=== PATIENT | male | born 1940 | race Caucasian/White ===

== ENCOUNTER → 2019-11-17 09:55 | Outpatient (BNVA) | payer MEDICARE, SELFPAY | PROVIDERS: Visit Provider Family Medicine | DX: I10 Essential (primary) hypertension (principal); R35.1 Nocturia; E03.9 Hypothyroidism, unspecified | CPT/HCPCS: 80053; 80061; 82044; 84153; 84443; 85025 ==

== ENCOUNTER → 2019-12-13 08:46 | Outpatient (BNVA) | payer MEDICARE, SELFPAY | PROVIDERS: PCP Family Medicine; Referring Provider Family Medicine; Visit Provider Urology | DX: R97.20 Elevated prostate specific antigen [PSA] (principal) | CPT/HCPCS: 84153 ==

== ENCOUNTER → 2020-06-21 11:48 | Outpatient (BNVA) | payer MEDICARE, SELFPAY | PROVIDERS: PCP Family Medicine; Visit Provider Family Medicine | DX: E03.9 Hypothyroidism, unspecified (principal); I10 Essential (primary) hypertension; K21.9 Gastro-esophageal reflux disease without esophagitis | CPT/HCPCS: 80053; 84443 ==

== ENCOUNTER → 2020-08-21 15:58 | Outpatient (BNVA) | payer MEDICARE, SELFPAY | PROVIDERS: PCP Family Medicine; Visit Provider Urology | DX: R39.9 Unspecified symptoms and signs involving the genitourinary system (principal); N99.111 Postprocedural bulbous urethral stricture, male; R97.20 Elevated prostate specific antigen [PSA] | CPT/HCPCS: 81003; 84153 ==

== ENCOUNTER → 2020-12-20 12:08 | Outpatient (BNVA) | payer MEDICARE, SELFPAY | PROVIDERS: PCP Family Medicine; Visit Provider Family Medicine | DX: I10 Essential (primary) hypertension (principal); E03.9 Hypothyroidism, unspecified; K21.9 Gastro-esophageal reflux disease without esophagitis; M79.89 Other specified soft tissue disorders | CPT/HCPCS: 80053; 80061; 82043; 84439; 84443; 85025 ==

== ENCOUNTER → 2021-06-13 13:42 | Outpatient (BNVA) | payer MEDICARE, SELFPAY | PROVIDERS: PCP Family Medicine; Visit Provider Family Medicine | DX: E03.9 Hypothyroidism, unspecified (principal); I10 Essential (primary) hypertension | CPT/HCPCS: 80053; 84443 ==

== ENCOUNTER → 2021-12-16 13:27 | Outpatient (BNVA) | payer MEDICARE, SELFPAY | PROVIDERS: PCP Family Medicine; Visit Provider Family Medicine | DX: I10 Essential (primary) hypertension (principal); R60.0 Localized edema; R35.1 Nocturia; R97.20 Elevated prostate specific antigen [PSA] | CPT/HCPCS: 80053; 80061; 82043; 84153; 84443; 85025 ==

== ENCOUNTER → 2022-02-13 14:22 | Outpatient (BNVA) | payer MEDICARE, SELFPAY | PROVIDERS: PCP Family Medicine; Visit Provider Family Medicine | DX: I10 Essential (primary) hypertension (principal); R60.0 Localized edema | CPT/HCPCS: 80048 ==

== ENCOUNTER → 2022-02-26 09:05 | Outpatient (BNVA) | payer MEDICARE, SELFPAY | PROVIDERS: PCP Family Medicine; Visit Provider Urology | DX: R97.20 Elevated prostate specific antigen [PSA] (principal) | CPT/HCPCS: 84153 ==

== ENCOUNTER → 2022-03-06 08:34 | Outpatient (BNVA) | payer MEDICARE, SELFPAY | PROVIDERS: PCP Family Medicine; Visit Provider Urology | DX: N99.111 Postprocedural bulbous urethral stricture, male (principal); R97.20 Elevated prostate specific antigen [PSA]; R39.9 Unspecified symptoms and signs involving the genitourinary system | CPT/HCPCS: 51741; 51798; 81003; 99213 ==

== ENCOUNTER 2022-03-13 09:37 | Outpatient (CLI) | payer MEDICARE, SELFPAY ==
--- NOTE | 2022-03-13 10:00 | USCV_ITS ---
Smith Gar Age: 81 Gender: M : 1940 Exam Date: 03/13/2022 09:53 Ordering Phys: Eliz Wolfe DO Technologist: Muriel Reid [place]am Location[place] [facility] [place] Indication: LE edema BP: 130 / 70 HR: 93 Rhythm: Sinus Technical Quality: Good MEASUREMENTS (Male / Female) Normal Values 2D ECHO LV Diastolic Diameter PLAX 4.0 cm 4.2 - 5.9 / 3.9 - 5.3 cm LV Systolic Diameter PLAX 1.7 cm IVS Diastolic Thickness 1.2 cm 0.6 - 1.0 / 0.6 - 0.9 cm IVS Systolic Thickness 1.6 cm LVPW Diastolic Thickness 1.2 cm 0.6 - 1.0 / 0.6 - 0.9 cm LVPW Systolic Thickness 2.1 cm LVOT Diameter 2.1 cm LV Ejection Fraction 2D Teich 87.4 % LV Ejection Fraction MOD 2C 55.5 % LV Ejection Fraction 2C AL 58.4 % LA Diameter 4.0 cm LA Width 4.4 cm LA Height 6.9 cm RA Width 3.2 cm RA Height 5.9 cm Aorta at Sinotubular Diameter 3.1 cm IVC Diameter 1.1 cm M-MODE MV E Point Septal Separation 0.8 cm DOPPLER AV Peak Velocity 72.0 cm/s LVOT Peak Velocity 78.0 cm/s AV Area Cont Eq vti 3.2 cm squared AV Area Cont Eq pk 3.7 cm squared MV Peak Velocity 109.0 cm/s MV Area PHT 6.3 cm squared Mitral E to A Ratio 4.4 MV E' Velocity 46.5 cm/s Mitral E to MV E' Ratio 8.3 Mitral E to LV E' Lateral Ratio 7.3 Mitral E to LV E' Septal Ratio 9.7 TR Peak Velocity 173.3 cm/s TR Peak Gradient 12.0 mmHg Right Atrial Pressure 3.0 mmHg Pulmonary Artery Systolic Pressu 15.0 mmHg PV Peak Velocity 72.0 cm/s RV Acceleration Time 0.1 s RV Ejection Time 0.3 s RV AcT/ET 0.3 FINDINGS Left Ventricle Normal left ventricular size and systolic function, ejection fraction around 50 to 55%(visual). Because of the arrhythmias, segmental wall motion analysis and ejection fraction estimation are difficult Right Ventricle The right ventricle is normal in size and function. Right Atrium Mildly increased right atrial size. Left Atrium Mildly increased left atrial size. Mitral Valve Trace mitral valve regurgitation. Aortic Valve No gross abnormalities noted Tricuspid Valve Mild tricuspid valve regurgitation. Pulmonic Valve Pulmonic valve not well visualized. Pericardium Normal pericardium without effusion. Aorta Normal aortic annulus size. IVC Normal inferior vena cava. CONCLUSIONS Normal left ventricular size and systolic function, ejection fraction around 50 to 55%(visual). Because of the arrhythmias, segmental wall motion analysis and ejection fraction estimation are difficult. Mild biatrial enlargement Trace mitral valve regurgitation. Mild tricuspid valve regurgitation. Estimated pulmonary artery peak systolic pressure, within normal limits Technically difficult study because of the poor ultrasonic window. No similar previous studies are available for comparison Dr Kiley Jin MD [facility] (Electronically Signed) Final Date: 13 March 2022 21:01 S
== END 2022-03-13 09:38 | disposition home or self-care (01) ==
LOC: RAD 09:38
PROVIDERS: PCP Family Medicine; Visit Provider Family Medicine
DX: R60.0 Localized edema (principal); I08.1 Rheumatic disorders of both mitral and tricuspid valves
CPT/HCPCS: 93306

== ENCOUNTER 2022-10-23 15:17 | Emergency (ER) | payer MEDICARE, SELFPAY ==
[2022-10-23 15:24] VITALS: BP 144/94; PULSE 96; RESP 16; TEMP 36.4; O2SAT 95; BMI 30.7
--- NOTE | 2022-10-23 16:05 | CTR_ITS ---
PROCEDURE INFORMATION: Exam: CT Abdomen And Pelvis With Contrast Exam date and time: 10/23/2022 5:00 PM Age: 82 years old Clinical indication: Abdominal pain; Localized; Left lower quadrant (llq); Prior surgery; Surgery date: 6+ months; Surgery type: Appy; Additional info: Llq pain, HX of diverticulitis TECHNIQUE: Imaging protocol: Computed tomography of the abdomen and pelvis with contrast. Radiation optimization: All CT scans at this facility use at least one of these dose optimization techniques: automated exposure control; mA and/or kV adjustment per patient size (includes targeted exams where dose is matched to clinical indication); or iterative reconstruction. Contrast material: OMNI 350; Contrast volume: 100 ml; Contrast route: INTRAVENOUS (IV); REPORTING DATA: Count of CT and Cardiac NM exams in prior 12 months: This patient has received 0 known CTs and 0 known cardiac nuclear medicine studies in the 12 months prior to the current study. COMPARISON: No relevant prior studies available. RADIATION DOSE METRICS: Total DLP (mGy-cm): 892.6 FINDINGS: Lungs: Emphysematous changes. Minimal bibasilar interstitial fibrotic changes. Liver: Hepatic steatosis. Gallbladder and bile ducts: Normal. No calcified stones. No ductal dilation. Pancreas: Normal. No ductal dilation. Spleen: Normal. No splenomegaly. Adrenal glands: Normal. No mass. Kidneys and ureters: Right kidney cyst, negative for follow-up advised. Stomach and bowel: Edematous fat density lesion measuring 22 mm along the medial aspect of the distal descending colon suggestive of epiploic appendagitis, diverticulitis may also be a consideration given the presence of several diverticuli in this region with some colonic wall thickening. Appendix: No evidence of appendicitis. Intraperitoneal space: Unremarkable. No free air. No significant fluid collection. Vasculature: Unremarkable. No abdominal aortic aneurysm. Lymph nodes: Unremarkable. No enlarged lymph nodes. Urinary bladder: Unremarkable as visualized. Reproductive: Nodular prostate gland enlargement. Bones/joints: Unremarkable. No acute fracture. Soft tissues: Unremarkable. CT/CT abdomen pelvis w con* [id number] IMPRESSION: 1. Edematous fat density lesion measuring 22 mm along the medial aspect of the distal descending colon suggestive of epiploic appendagitis, diverticulitis may also be a consideration given the presence of several diverticuli in this region with some colonic wall thickening. 2. Nodular prostate gland enlargement. 3. Emphysematous changes. 4. Minimal bibasilar interstitial fibrotic changes. 5. Hepatic steatosis. 6. Right kidney cyst, negative for follow-up advised. COMMENTS: Consistent with the [employer]'s Incidental Findings Committee white paper (J Am Mikala Radiol 2018): Any incidental renal lesion less than 1 cm or classified as too small to characterize, or any incidental cystic renal lesion characterized as simple-appearing, is likely benign. No follow-up imaging is recommended for these lesions per consensus recommendations based on imaging criteria.
[2022-10-23 16:09] VITALS: BP 115/80; PULSE 94; RESP 18; O2SAT 98
[2022-10-23 16:26] LABS: Basophils # 0.1 10^3/uL (0.0-0.1); Basophils % 0.7 %; Eosinophils # 0.2 10^3/uL (0.0-0.8); Eosinophils % 2.7 %; Hematocrit 51.3 % (42.0-52.0); Hemoglobin 16.4 g/dL (11.7-16.6); Lymphocytes # 1.4 10^3/uL (0.8-4.8); Lymphocytes % 16.9 %; Mean Corpuscular Hemoglobin 29.8 pg (28.0-34.0); Mean Corpuscular Volume 93.1 fl (80-94); Mean Platelet Volume 10.6 fL (7.4-10.4); Monocytes # 0.8 10^3/uL (0.2-0.9); Monocytes % 8.9 %; Neutrophils # 5.88 10^3/uL (1.8-7.7); Neutrophils % 70.3 %; Nucleated Red Blood Cells % 0 %; Platelet Count 239 10^3/cmm (130-400); Red Blood Count 5.51 10^6/uL (4.1-5.3); Red Cell Distribution Width 13.2 % (12.1-15.1); White Blood Count 8.4 10^3/uL (4.0-10.0)
--- NOTE | 2022-10-23 16:28 | ED_ITS ---
HPI - Abdominal Pain General: Chief Complaint: Abdominal Pain Stated Complaint: Sore belly Time Seen by Provider: 10/23/22 16:05 History of Present Illness: Patient presents to the ER from his PCPs office for left lower quadrant abdominal pain. They want us to rule out diverticulitis. Patient's had this pain for about 5 days. Patient had does not have any nausea vomiting diarrhea fevers chills. Has had this pain before that he thought it was a pulled abdominal muscle and went away. It usually last a couple days but this times last 5 days so he was curious if it was something different. Nothing makes his pain better or worse. Review of Systems General: Reports: 10 or more systems reviewed and unremarkable except in HPI and below PFSH ED PFSH: Medical History Dilation of esophagus Elevated PSA Essential hypertension GERD (gastroesophageal reflux disease) Hypothyroid Infection of external ear Lower urinary tract symptoms (LUTS) Otitis externa Surgical History H/O dilation of urethra History of cholecystectomy History of prostate surgery history of TURP - 2009 Family History Mother , 87 No problems noted. Father , 68 Stroke Social History Smoking and tobacco status: former smoker Alcohol intake: former Substance/Drug Use: never Marital status: Current occupational status: retired Physical Exam Const: COMMON NORMALS: no acute distress, average body habitus, patient oriented x3, no limitations, healthy appearing, alert and well nourished HENMT: COMMON NORMALS: normocephalic, atraumatic, hearing grossly normal bilaterally, external ears normal, Normal external nose present and moist oral mucous membranes HEAD & SCALP: normocephalic and atraumatic NOSE: Normal external nose present EXTERNAL EAR: Yes external ears normal Eye: COMMON NORMALS: Equal, round and reactive pupils present, EOMs intact bilaterally, conjunctivae normal and no scleral icterus CONJUNCTIVA: Yes conjunctivae normal PUPIL: Yes Equal, round and reactive pupils present Neck/C-Spine: COMMON NORMALS: full ROM, no lymphadenopathy, supple, no meningeal signs, no JVD and Thyroid normal THYROID: Thyroid normal Chest: COMMONS NORMALS: normal inspection of the chest and normal palpation of entire chest wall Resp: COMMON NORMALS: normal respiratory effort, No retractions, No use of accessory muscles and clear to auscultation bilaterally AUSCULTATION: clear to auscultation bilaterally Cardio: COMMON NORMALS: no JVD, regular rate, regular rhythm, S1 normal heart sound present, S2 normal heart sound present, No gallops present (Cardio), No clicks present (Cardio), No murmurs present (Cardio) and No rub (Cardio) RATE: regular rate RHYTHM: regular rhythm HEART SOUNDS: S1 normal heart sound present and S2 normal heart sound present GI: COMMON NORMALS: Normal to inspection, nondistended, normoactive bowel sounds present, Soft to palpation, No hepatosplenomegaly present and no masses PALPATION: Yes Soft to palpation, Yes Tenderness to palpation present (GI) Details: LLQ and Yes No hepatosplenomegaly present : COMMON NORMALS: Yes no CVA tenderness BLADDER/KIDNEY EXAM: Yes no CVA tenderness Back/Pelvis: COMMON NORMALS: no CVA tenderness Neuro: COMMON NORMALS: patient oriented x3 SENSORIUM/ORIENTATION: Yes alert MENINGEAL SIGNS: Yes no meningeal signs Course Vital Signs: Vital signs: Vital Signs Temperature 97.5 F L 10/23/22 15:24 Pulse Rate 94 10/23/22 16:09 Respiratory Rate 18 10/23/22 16:09 Blood Pressure 115/80 10/23/22 16:09 Pulse Oximetry 98 10/23/22 16:09 Oxygen Delivery Me thod Room Air 10/23/22 16:09 MDM - Abdominal Pain Medical Decision Making Patient presents to the ER with complaints of left lower quadrant pain. Patient had blood work and a CT scan performed blood work was essentially benign. CT scan did show very mild evidence of diverticulitis. Patient will be treated for diverticulitis with Cipro and Flagyl. Patient should follow-up with his family practice doc within the next 7 to 10 days or sooner as needed. These instructions were explained to the patient and his and daughter. Patient will be discharged home Differential Diagnosis Likely abdominal pain; Unlikely acute appendicitis, calculus of kidney, constipation, diverticulitis, endometriosis, gastroenteritis, pancreatitis or small bowel obstruction Medical Records I reviewed the patient's medical records. Lab Data I reviewed the patient's lab results. 10/23/22 16:17 10/23/22 16:17 Labs/Radiology: Radiology Impressions Abdomen/Pelvis CT 10/23/22 16:05 IMPRESSION: 1. Edematous fat density lesion measuring 22 mm along the medial aspect of the distal descending colon suggestive of epiploic appendagitis, diverticulitis may also be a consideration given the presence of several diverticuli in this region with some colonic wall thickening. 2. Nodular prostate gland enlargement. 3. Emphysematous changes. 4. Minimal bibasilar interstitial fibrotic changes. 5. Hepatic steatosis. 6. Right kidney cyst, negative for follow-up advised. COMMENTS: Consistent with the [employer]'s Incidental Findings Committee white paper (J Am Mikala Radiol 2018): Any incidental renal lesion less than 1 cm or classified as too small to characterize, or any incidental cystic renal lesion characterized as simple-appearing, is likely benign. No follow-up imaging is recommended for these lesions per consensus recommendations based on imaging criteria. Laboratory Results WBC 8.4 10^3/uL (4.0-10.0) 10/23/22 16:17 RBC 5.51 10^6/uL (4.1-5.3) H 10/23/22 16:17 Hgb 16.4 g/dL (11.7-16.6) 10/23/22 16:17 Hct 51.3 % (42.0-52.0) 10/23/22 16:17 MCV 93.1 fl (80-94) 10/23/22 16:17 MCH 29.8 pg (28.0-34.0) 10/23/22 16:17 MCHC 32.0 g/dL (30.0-36.0) 10/23/22 16:17 RDW 13.2 % (12.1-15.1) 10/23/22 16:17 Plt Count 239 10^3/cmm (130-400) 10/23/22 16:17 MPV 10.6 fL (7.4-10.4) H 10/23/22 16:17 Neut % (Auto) 70.3 % 10/23/22 16:17 Lymph % (Auto) 16.9 % 10/23/22 16:17 [place] % (Auto) 8.9 % 10/23/22 16:17 Eos % (Auto) 2.7 % 10/23/22 16:17 Baso % (Auto) 0.7 % 10/23/22 16:17 Neut # (Auto) 5.88 10^3/uL (1.8-7.7) 10/23/22 16:17 Lymph # (Auto) 1.4 10^3/uL (0.8-4.8) 10/23/22 16:17 [place] # (Auto) 0.8 10^3/uL (0.2-0.9) 10/23/22 16:17 Eos # (Auto) 0.2 10^3/uL (0.0-0.8) 10/23/22 16:17 Baso # (Auto) 0.1 10^3/uL (0.0-0.1) 10/23/22 16:17 Nucleated RBC % (auto) 0 % 10/23/22 16:17 Nucleated RBCs # 0.0 /100WBC 10/23/22 16:17 Sodium 141 mmol/L (136-145) 10/23/22 16:17 Potassium 4.2 mmol/L (3.5-5.1) 10/23/22 16:17 Chloride 105 mmol/L (98-107) 10/23/22 16:17 Carbon Dioxide 27 mmol/L (22-29) 10/23/22 16:17 Anion Gap 13.2 (5-19) 10/23/22 16:17 BUN 19 mg/dL (8-23) 10/23/22 16:17 Creatinine 0.9 mg/dL (0.7-1.2) 10/23/22 16:17 GFR Calculation Not Reportable 10/23/22 16:17 Glucose 90 mg/dL (65-115) 10/23/22 16:17 Calculated Osmolality 294 mOsm/kg (285-295) 10/23/22 16:17 Calcium 9.3 mg/dL (8.5-10.5) 10/23/22 16:17 Total Bilirubin 0.6 mg/dL (0.15-1.2) 10/23/22 16:17 AST 21 U/L (0-40) 10/23/22 16:17 ALT 24 U/L (0-41) 10/23/22 16:17 Alkaline Phosphatase 104 U/L (40-130) 10/23/22 16:17 Total Protein 6.8 g/dL (6.6-8.7) 10/23/22 16:17 Albumin 3.6 g/dL (3.5-5.2) 10/23/22 16:17 Globulin 3.2 g/dL (1.3-4.6) 10/23/22 16:17 Lipase 17 U/L (13-60) 10/23/22 16:17 Urine Color Yellow (Yellow) 10/23/22 16:41 Urine Appearance Clear (CLEAR) 10/23/22 16:41 Urine pH 5 (5-7) 10/23/22 16:41 Ur Specific [place] 1.025 (1.005-1.030) 10/23/22 16:41 Urine Protein Neg (Negative) 10/23/22 16:41 Urine Glucose (UA) Norm (Normal) 10/23/22 16:41 Urine Ketones Negative (Negative) 10/23/22 16:41 Urine Blood 2+ (Negative) H 10/23/22 16:41 Urine Nitrate Negative (Negative) 10/23/22 16:41 Urine Bilirubin Neg (Negative) 10/23/22 16:41 Urine Urobilinogen Norm mg/dL (Negative) 10/23/22 16:41 Ur Leukocyte Esterase Negative (Negative) 10/23/22 16:41 Urine RBC 0-4 /hpf (0-2) H 10/23/22 16:41 Urine WBC 0-4 /hpf (0-5) H 10/23/22 16:41 Ur Squamous Epith Cells 0-4 /hpf (0-5) H 10/23/22 16:41 Amorphous Sediment Not Reportable 10/23/22 16:41 Urine Bacteria Trace /hpf (NONE) 10/23/22 16:41 Urine Mucus 3+ /hpf 10/23/22 16:41 Discharge Plan Discharge Patient Disposition: Home Clinical Impression: Diverticulitis Condition: Stable Prescriptions: New ciprofloxacin HCl 500 mg tablet 250 mg PO Q12H Qty: 20 0RF metronidazole 500 mg tablet 500 mg PO Q8H Qty: 30 0RF No Action metoprolol tartrate 25 mg tablet 12.5 mg PO BID Qty: 30 0RF Eliquis 5 mg Tablet 5 mg PO BID levothyroxine 75 mcg tablet 75 mcg PO DAILY pantoprazole 40 mg tablet,delayed release (/EC) 40 mg PO DAILY PRN (Reason: Acid Reflux) Discharge Orders: Discharge ED (Routine); Ordered 10/23/22 Ordered By: Sharif Kilgore Referrals: Eliz Wolfe DO [Primary Care Provider] - 1 week Patient Instructions: Diverticulitis Activity Restrictions/Additional Instructions: Please take your antibiotics as directed. Please follow-up with your primary care doc within the next 1 to week as needed. Please return to the ER if your symptoms worsen. 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
[2022-10-23 16:45] LABS: Alanine Aminotransferase 24 U/L (0-41); Albumin Level 3.6 g/dL (3.5-5.2); Alkaline Phosphatase 104 U/L (40-130); Anion Gap 13.2 (5-19); Aspartate Amino Transferase 21 U/L (0-40); Blood Urea Nitrogen 19 mg/dL (8-23); Calcium 9.3 mg/dL (8.5-10.5); Carbon Dioxide 27 mmol/L (22-29); Chloride 105 mmol/L (98-107); Globulin 3.2 g/dL (1.3-4.6); Glucose 90 mg/dL (65-115); Lipase 17 U/L (13-60); Osmolality Calculated 294 mOsm/kg (285-295); Potassium 4.2 mmol/L (3.5-5.1); Sodium 141 mmol/L (136-145); Total Bilirubin 0.6 mg/dL (0.15-1.2); Total Protein 6.8 g/dL (6.6-8.7)
[2022-10-23 17:12] LABS: Add Urine Microscopic? YES; Bacteria Urine TRACE /hpf; Bilirubin Urine Neg (Negative); Blood Urine 2+ (Negative); Glucose Urine UA Norm (Normal); Ketones Urine Negative (Negative); Leukocyte Esterase Urine Negative (Negative); Mucus Urine 3+ /hpf; Nitrate Urine Negative (Negative); Protein Urine Neg (Negative); RBC Urine 0-4 /hpf (0-2); Specific Gravity, Urine 1.025 (1.005-1.030); Squamous Epithelial Cell Urine 0-4 /hpf (0-5); Urine Appearance Clear (CLEAR); Urine Color Yellow (Yellow); Urobilinogen Urine Norm (Negative); WBC Urine 0-4 /hpf (0-5); pH Urine 5 (5-7)
[2022-10-23 17:13] LABS: Add Urine Culture? No
== END 2022-10-23 18:23 | disposition home or self-care (01) ==
PROVIDERS: Emergency Provider Emergency Medicine; PCP Family Medicine
DX: K57.32 Diverticulitis of large intestine without perforation or abscess without bleeding (principal)
CPT/HCPCS: 74177; 80053; 81001; 83690; 85025; 99284; Q9967

== ENCOUNTER 2022-10-28 10:19 | Emergency (ER) | payer OTHER, SELFPAY ==
[2022-10-28 10:22] VITALS: BP 137/93; PULSE 95; RESP 18; TEMP 36.7; O2SAT 97
--- NOTE | 2022-10-28 10:40 | ECG_ITS ---
[facility] Test Date: 2022-10-28 Pat Name: Smith Gar Department: Room: Gender: Male Pumper Head: : 1940 Requested By: Sharif Kilgore Order Number: [id number] Flynn MD: Kiley Jin M.D. Measurements Intervals Eros Rate: 87 P: 0 MO: 0 QRS: 23 QRSD: 84 T: 36 QT: 351 QTc: 425 Interpretive Statements ATRIAL FIBRILLATION ABNORMAL RHYTHM ECG No previous ECG available for comparison Electronically Signed On 10-29-2022 10:07:04 CDT by Kiley Jin M.D. [email or web address] [id number]
--- NOTE | 2022-10-28 11:24 | W.ED.GENADLT ---
HPI - General Adult General: Chief complaint: General Medical Stated complaint: dr bolaños sent did not say why dr said go immedia Time Seen by Provider: 10/28/22 11:14 History of Present Illness: Patient sent here by PCP due to them having a report of sustained A-fib with RVR from yesterday. Patient does not have any complaints at this moment. And he denies any complaints yesterday other than yard work. Patient is currently on Eliquis. Review of Systems General: Reports: 10 or more systems reviewed and unremarkable except in HPI and below PFSH ED PFSH: Medical History Dilation of esophagus Elevated PSA Essential hypertension GERD (gastroesophageal reflux disease) Hypothyroid Infection of external ear Lower urinary tract symptoms (LUTS) Otitis externa Surgical History H/O dilation of urethra History of cholecystectomy History of prostate surgery history of TURP - 2009 Family History Mother , 87 No problems noted. Father , 68 Stroke Social History Smoking and tobacco status: former smoker Alcohol intake: former Substance/Drug Use: never Marital status: Current occupational status: retired Physical Exam Const: COMMON NORMALS: no acute distress, average body habitus, patient oriented x3, no limitations, healthy appearing, alert and well nourished HENMT: COMMON NORMALS: normocephalic, atraumatic, hearing grossly normal bilaterally, external ears normal, Normal external nose present and moist oral mucous membranes HEAD & SCALP: normocephalic and atraumatic NOSE: Normal external nose present EXTERNAL EAR: Yes external ears normal Eye: COMMON NORMALS: Equal, round and reactive pupils present, EOMs intact bilaterally, conjunctivae normal and no scleral icterus CONJUNCTIVA: Yes conjunctivae normal PUPIL: Yes Equal, round and reactive pupils present Chest: COMMONS NORMALS: normal inspection of the chest and normal palpation of entire chest wall Resp: COMMON NORMALS: normal respiratory effort, No retractions, No use of accessory muscles and clear to auscultation bilaterally AUSCULTATION: clear to auscultation bilaterally Cardio: COMMON NORMALS: regular rate RATE: regular rate RHYTHM: abnormal rhythm irregularly irregular GI: COMMON NORMALS: Normal to inspection, nondistended, normoactive bowel sounds present, Soft to palpation, non-tender, No hepatosplenomegaly present and no masses PALPATION: Yes Soft to palpation and Yes No hepatosplenomegaly present : COMMON NORMALS: Yes no CVA tenderness BLADDER/KIDNEY EXAM: Yes no CVA tenderness Back/Pelvis: COMMON NORMALS: no CVA tenderness Neuro: COMMON NORMALS: patient oriented x3 SENSORIUM/ORIENTATION: Yes alert Course Vital Signs: Vital signs: Vital Signs Temperature 98.0 F 10/28/22 10:22 Pulse Rate 95 10/28/22 10:22 Respiratory Rate 18 10/28/22 10:22 Blood Pressure 137/93 10/28/22 10:22 Pulse Oximetry 97 10/28/22 10:22 Oxygen Delivery Me thod Room Air 10/28/22 10:22 MDM - General Adult Medical Decision Making Patient was sent here by his PCP for A-fib with RVR on his Holter monitor yesterday. Patient denies any symptomatology yesterday and/or today. Patient will be discharged home to continue to wear his Holter monitor and follow-up with his PCP as needed. Patient is currently on Eliquis. EKG Data EKG 1: I personally reviewed and interpreted this EKG as follows: EKG interpretation date: 10/28/22 EKG interpretation time: 10:40 Prior EKG tracings: not available for review Interpretation: EKG showed ventricular rate 87 beats minute, QRS 84, QTc of 425, A-fib, no ST-T wave changes. Discharge Plan Discharge Patient Disposition: Home Clinical Impression: Atrial fibrillation Qualifiers: Atrial fibrillation type: unspecified Qualified Code(s): I48.91 - Unspecified atrial fibrillation Condition: Stable Prescriptions: No Action metoprolol tartrate 25 mg tablet 12.5 mg PO BID Qty: 30 0RF Eliquis 5 mg Tablet 5 mg PO BID levothyroxine 75 mcg tablet 75 mcg PO DAILY pantoprazole 40 mg tablet,delayed release (DR/EC) 40 mg PO DAILY PRN (Reason: Acid Reflux) ciprofloxacin HCl 500 mg tablet 250 mg PO Q12H Qty: 20 0RF metronidazole 500 mg tablet 500 mg PO Q8H Qty: 30 0RF Discharge Orders: Discharge ED (Routine); Ordered 10/28/22 Ordered By: Sharif Kilgore Referrals: Eliz Bolaños DO [Primary Care Provider] - Patient Instructions: Atrial Fibrillation Activity Restrictions/Additional Instructions: Please continue to wear your Holter monitor as directed, please follow-up with your family practice physician as needed. 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
[2022-10-28 11:49] VITALS: BP 132/93; PULSE 83
== END 2022-10-28 11:50 | disposition home or self-care (01) ==
PROVIDERS: Emergency Provider Emergency Medicine; PCP Family Medicine
DX: I48.91 Unspecified atrial fibrillation (principal); Z79.01 Long term (current) use of anticoagulants
CPT/HCPCS: 93005; 99283

== ENCOUNTER → 2022-11-05 10:30 | Outpatient (BNVA) | payer MEDICARE, SELFPAY | PROVIDERS: PCP Family Medicine; Visit Provider Internal Medicine Cardiovascular Disease | DX: I48.91 Unspecified atrial fibrillation (principal); I10 Essential (primary) hypertension; Z79.01 Long term (current) use of anticoagulants; Z87.891 Personal history of nicotine dependence | CPT/HCPCS: 99203 ==

== ENCOUNTER 2022-12-21 10:00 | Outpatient (CLI) | payer MEDICARE, SELFPAY ==
[2022-12-21 10:19] VITALS: BMI 30.5
--- NOTE | 2022-12-21 10:20 | NMCV_ITS ---
NM alexis perf SPECT r/s* [id number] Smith Gar Age: 82 Gender: M : 1940 Exam Date: 12/21/2022 10:20 Ordering Phys: Eliz Wolfe DO Technologist: ERNESTO Bridges Exam Location: [facility] Indications: CHEST PAIN STRESS TEST Please [facility] for [facility] IMAGE PROTOCOL Rest/Stress 1 Lexiscan Day Radiopharmaceutical Dose (mCi) Administration Site Administered by Rest: Tc-99m 11.0 IV ERNESTO Moses Sestamibi Stress:Tc-99m 32.6 IV ERNESTO Moses Sestamibi Rest: 21-Dec-2022 60 Discovery 630 Stress: 21-Dec-2022 30 Discovery 630 0.4mg Lexiscan. Images obtained in supine and prone position. SPECT RESULTS Technical Quality: Excellent Raw Data Analysis: Normal Image Corrections: No attenuation or motion correction applied Summed Stress Score: 0 Summed Rest Score: 0 Summed Difference Score: 0 PERFUSION FINDINGS SPECT images demonstrate homogeneous tracer distribution throughout the myocardium. FUNCTIONAL RESULTS (calculated via Gated SPECT) Stress Image LV EF (%): 64 Stress EDV (mL):66 TID: 1.02 Stress ESV (mL):24 FUNCTIONAL FINDINGS: The left ventricle is normal in size. Transient Ischemia Dilatation of 1. The left ventricular ejection fraction is normal with a value of 64%. There is normal left ventricular systolic function. Normal end-diastolic and end-systolic volumes. IMPRESSIONS 1. Myocardial perfusion imaging is normal. 2. Overall left ventricular systolic function is normal without regional wall motion abnormalities, LVEF=64%. 3. EKG portion of the study will be reported separately. 4. Scan indicates low risk for cardiac events. Yasmin Ortiz MD (Electronically Signed) Final Date: 22 December 2022 12:33 S
--- NOTE | 2022-12-21 10:20 | ECG_ITS ---
[facility] Test Date: 2022-12-21 Pat Name: Smith Gar Department: Room: Gender: Male Infertility Nurse: : 1940 Requested By: Eliz Wolfe Order Number: [id number] Pruett MD: Yasmin Ortiz M.D. Interpretive Statements NAME OF STUDY: LEXISCAN SESTAMIBI STRESS TEST INDICATION: New Onset Afib PROCEDURE: At the baseline, the blood pressure was 137/93 mmHg, oxygen saturation 92% with a heart rate of 72 bpm. The electrocardiogram showed atrial fibrillation with controlled ventricular response, normal axis with nonspecific ST changes. The Lexiscan was infused over a period of 20 seconds. A total of 0.4 milligrams of Lexiscan was infused. The stress phase was continued for a total of 5 minutes. Heart rate at the end of the stress phase was 99 bpm, oxygen saturation 92% with a blood pressure 137/93 mmHg. The EKG at the peak infusion revealed atrial fibrillation at 91 bpm with no significant ST-T wave changes. Study was terminated due to protocol completion. Sestamibi was injected 20 seconds after the Lexiscan infusion. Blood pressure at the end of the recovery phase was 139 over 76 mmHg, oxygen saturation 92% with a heart rate of 85 beats per minute. CONCLUSION: 1. No significant EKG changes with the LexiScan infusion 2. No LexiScan induced chest pain or cardiac arrhythmia. 3. Normal blood pressure and heart rate response. 4. Sestamibi/sestamibi perfusion scan pending; see separate report. Electronically Signed On 12-29-2022 16:41:12 CDT by Yasmin Ortiz M.D. [id number]
[2022-12-21] MEDS: regadenoson 0.4 Mg/5 ml Syringe IVP (12:56)
[2022-12-21 13:13] VITALS: BP 109/76; PULSE 83
== END 2022-12-21 10:01 | disposition home or self-care (01) ==
PROVIDERS: PCP Family Medicine; Visit Provider Family Medicine
DX: I48.91 Unspecified atrial fibrillation (principal)
CPT/HCPCS: 36415; 78452; 93017; 96374; A9500; J2785

== ENCOUNTER → 2023-05-28 09:32 | Outpatient (BNVA) | payer MEDICARE, SELFPAY | PROVIDERS: PCP Family Medicine; Visit Provider Internal Medicine Cardiovascular Disease | DX: I10 Essential (primary) hypertension (principal); I48.91 Unspecified atrial fibrillation; Z79.01 Long term (current) use of anticoagulants; Z87.891 Personal history of nicotine dependence | CPT/HCPCS: 99213 ==

== ENCOUNTER → 2023-06-14 12:31 | Outpatient (BNVA) | payer MEDICARE, SELFPAY | PROVIDERS: PCP Family Medicine; Visit Provider Family Medicine | DX: E03.9 Hypothyroidism, unspecified (principal); I48.91 Unspecified atrial fibrillation | CPT/HCPCS: 84443 ==

== ENCOUNTER → 2024-07-10 13:54 | Outpatient (BNVA) | payer MEDICARE, SELFPAY | PROVIDERS: PCP Family Medicine; Visit Provider Family Medicine | DX: I10 Essential (primary) hypertension (principal); E03.9 Hypothyroidism, unspecified | CPT/HCPCS: 80053; 80061; 82043; 84443; 85025 ==

== ENCOUNTER → 2025-01-05 13:17 | Outpatient (BNVA) | payer MEDICARE, SELFPAY | PROVIDERS: PCP Family Medicine; Visit Provider Family Medicine | DX: I10 Essential (primary) hypertension (principal); E03.9 Hypothyroidism, unspecified | CPT/HCPCS: 80048; 84443 ==

== ENCOUNTER 2025-02-08 14:48 | Outpatient (CLI) | payer MEDICARE, SELFPAY ==
--- NOTE | 2025-02-08 14:51 | XRR_ITS ---
PROCEDURE INFORMATION: Exam: XR Left Tibia and Fibula Exam date and time: 02/08/2025 3:03 PM Age: 84 years old Clinical indication: Lower leg; Left; PT states he has had anterior kitchen pain x few days. TECHNIQUE: Imaging protocol: Radiologic exam of the left tibia and fibula. Views: 2 views. COMPARISON: No relevant prior studies available. FINDINGS: Bones/joints: No acute fracture or subluxation. Small enthesophyte superior calcaneus. Soft tissues: Normal. XR/XR tibia fibula LT 2V [id number] IMPRESSION: No acute fracture or subluxation.
== END 2025-02-08 14:49 | disposition home or self-care (01) ==
LOC: RAD 14:49
PROVIDERS: PCP Family Medicine; Visit Provider Family Medicine
DX: M79.605 Pain in left leg (principal)
CPT/HCPCS: 73590

== ENCOUNTER → 2025-02-21 14:06 | Outpatient (BNVA) | payer MEDICARE, SELFPAY | PROVIDERS: PCP Family Medicine; Visit Provider Podiatrist Foot & Ankle Surgery | DX: S86.212A Strain of muscle(s) and tendon(s) of anterior muscle group at lower leg level, left leg, initial encounter (principal); X58.XXXA Exposure to other specified factors, initial encounter | CPT/HCPCS: 99204 ==

== ENCOUNTER 2025-02-23 14:41 | Outpatient (CLI) | payer MEDICARE, SELFPAY ==
--- NOTE | 2025-02-23 15:00 | MR_ITS ---
WS: [id number] MRI LEFT ANKLE WITHOUT CONTRAST. COMPARISON: None Multiplanar, multisequence imaging is performed without contrast. Complete tear involving the distal anterior tibialis tendon. Full-thickness tear with retraction. Fluid gap in the expected location of the tendon. In the proximal stump of the anterior tibialis tendon there is increased T2 signal. Small amount of soft tissue edema surrounds the tendon. No acute marrow edema or fracture. There is a small amount of edema edema in the medial and intermediate cuneiforms. Achilles tendon is normal. Normal peroneal tendons. Normal calcaneofibular tendon. Posterior tibialis tendon, flexor digitorum and flexor hallucis longus tendons are normal. Visualized spring ligament is intact but there is some very mild fraying and degenerative changes distally near the sustentaculum rhys. The anterior and posterior tibiofibular ligaments and the anterior and posterior talofibular ligaments are normal. Normal syndesmosis. Interosseous membrane is normal. Normal sinus Tarsi. MR/MR ankle LT wo con* [id number] IMPRESSION: 1. Complete full-thickness tear of the distal anterior tibialis tendon. Tendon is retracted to the talar neck. 2. No fractures.
== END 2025-02-23 14:42 | disposition home or self-care (01) ==
LOC: RAD 14:42
PROVIDERS: PCP Family Medicine; Visit Provider Podiatrist Foot & Ankle Surgery
DX: M79.605 Pain in left leg (principal); S86.212A Strain of muscle(s) and tendon(s) of anterior muscle group at lower leg level, left leg, initial encounter; X58.XXXA Exposure to other specified factors, initial encounter
CPT/HCPCS: 73721

== ENCOUNTER → 2025-03-06 14:22 | Outpatient (BNVA) | payer MEDICARE, SELFPAY | PROVIDERS: PCP Family Medicine; Visit Provider Podiatrist Foot & Ankle Surgery | DX: S86.212A Strain of muscle(s) and tendon(s) of anterior muscle group at lower leg level, left leg, initial encounter (principal); X58.XXXA Exposure to other specified factors, initial encounter | CPT/HCPCS: 99214 ==